=== PATIENT | female | born 1970 | race Caucasian/White ===

== ENCOUNTER 2023-02-11 12:57 | Outpatient (REF) | payer OTHER, MEDICARE, SELFPAY ==
[2023-02-12 13:44] LABS: H Pylori Breath Test Negative (Negative)
== END 2023-02-11 12:58 | disposition home or self-care (01) ==
LOC: HO.LNP 12:57
PROVIDERS: PCP Hospitalist; Visit Provider Nurse Practitioner
DX: R10.13 Epigastric pain (principal); R19.7 Diarrhea, unspecified
CPT/HCPCS: 83013

== ENCOUNTER 2023-02-11 12:57 | Outpatient (AMB) | payer OTHER, MEDICARE, SELFPAY ==
[2023-02-11 13:01] VITALS: BP 137/73; PULSE 65; BMI 23.9
--- NOTE | 2023-02-11 13:01 | A.OFFVIS_ITS ---
Intake Vital Signs 02/11/23 13:01 Height 5 ft 4 in Weight 139 lb BMI 23.9 BP 137/73 Blood Pressure Location Lt brachial Position Sitting Pulse 65 Intake Visit Reasons: epigastric pain Intake Note: Patient present to in office visit today as a new patient for epigastric pain. CC:Patient c/o epigastric pain for a few months. She states is getting worse and worse and sometimes is hard to sleep do to pain. She also c/o constipation and diarrhea. Patient states last colo and EGD was done at [facility] [place] years ago . Allergies No Known Drug Allergies Allergy (Unknown, Verified 02/11/23 13:04) none HPI epigastric pain HPI Details 52-year-old female here for initial eval uation of epigastric pain. She is referred by Alexander Gallardo. PMX Paresthesias Anxiety/insomnia Nonspecific rash Absence of kidney History of COVID-19 infection Cyst left eardrum * SURGICAL HISTORY Breast reduction Left nephrectomy status post hydronephrosis Appendectomy Bunionectomy Removal of growth from right ear cyst * ALLERGIES: NKDA * [employer]; none in our system TODAYS VISIT Onset of 6 mos of she started with CIC alt with diarrhea, prior her stools were normal and formed. CIC and diarrhea are equal and when she has diarrhea it is complete water. Then she started having pain pain in th e midline gastric area that interrupt her sleep. The pain is relieved with pushing on the area somewhat. It is a dull pressure like I have to push something out of the way. Discomfort more than pain 10/10 in pressure. NO new meds, diet changes or illness prior to this onset. 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 Her father had his GB removed, her mother of uncertain cause, other known stomach problems. Her PCP did labwork complete and an US not supplied to us. She was told the labs were perfect, GB was contracted and could not see tail of pancreas r/t bowel gas per pt report. Non stool studies done. She has a lot of bloating but not passing gas. This is post prandially no matter what foods. NO know FHX of crc or diarrheal syndromes. She has had past colonoscopies in her 40's that were normal. Had an EGD at the same time that was neg. There are no prior problems with anesthesia or sedation. She denies any cardiac or respiratory problems. NO ID problems. No known FHX of stomach or CRC or polyps. The for now and not starting any new interventions until I get all of the labs and imaging from her primary care provider. I will order an EGD and a colonoscopy for further investigation and for screening. Return office visit in 6 weeks. She is agreeable to this. [facility] Medical History COVID-19 virus infection Surgical History History of esophagogastroduodenoscopy (EGD) H/O colonoscopy S/P ear surgery History of bunionectomy History of appendectomy H/O left nephrectomy H/O bilateral breast reduction surgery Family History Mother Stomach cancer Paternal Grandmother Breast cancer Maternal Uncle Cancer Social History Alcohol intake: current Alcohol intake frequency: holidays/special occasions only Patient Tobacco Use Status: Former Tobacco user Review of Systems Const Denies fatigue, Denies fever(s), Denies night sweats, Reports poor appetite and Denies weight loss ENT Reports Normal hearing present, Denies dental pain, Denies dysphagia, Denies hearing loss, Denies mouth pain, Denies odynophagia, Denies throat swelling, Denies tongue swelling and Reports other (Dentition adequate) Card Reports no additional complaints Resp Reports no additional complaints GI Reports abdominal pain, Denies melena, Reports bloating, Denies hematochezia, Reports constipation, Denies GI cramping, Denies dysphagia, Denies excessive flatus, Denies early satiety, Denies heartburn, Reports diarrhea, Denies nausea, Denies odynophagia, Denies vomiting and Denies hematemesis Skin/Breast Denies pruritus, Denies lesions, Denies rash and Denies jaundice Neuro Reports Normal hearing present and Denies Abnormal speech present Endo Denies fatigue Aller/Immun Denies throat swelling and Denies tongue swelling Physical Exam Vital Signs: Last Vital Signs Pulse 65 02/11/23 13:01 BP 137/73 02/11/23 13:01 BMI result Body Mass Index 23.9 Const General: cooperative, no acute distress, well developed and well groomed Nutritional Appearance: average body habitus and well nourished Orientation/consciousness: oriented to person, oriented to place and oriented to time Limitations: No language barrier HEENT Head: Yes normocephalic and Yes atraumatic Eyes General: appearance normal, both eyes and all related structures Pupils: Equal, round and reactive pupils present Neck Neck: Yes normal visual inspection and Yes no lymphadenopathy Thyroid: Thyroid normal Resp Effort & Inspection: normal respiratory effort and able to speak in complete sentences Auscultation: clear to auscultation bilaterally Cardio Rate: regular rate Rhythm: regular rhythm Heart sounds: Normal, physiologic split S2 sound present Peripheral pulses: radial pulses present and posterior tibial pulses present GI Inspection: No distended and No Abdominal panniculus present Palpation (GI): Soft to palpation, Tenderness to palpation present (GI) (Gastric area and there seems to be a slight divot? Hernia), no guarding, not rigid and No hepatosplenomegaly present Percussion: Yes normal to percussion Auscultation: normal bowel sounds Rectal Exam - Female: deferred Skin General skin exam: no rashes or lesions noted, turgor normal, skin not dry, no jaundice, No spider nevi and no striae Rashes: no rashes Nails: normal Neuro General: oriented to person, oriented to place and oriented to time Cranial nerves: Yes Equal, round and reactive pupils present and Yes Normal hearing present Speech: No Abnormal speech present Extrem General: Yes normal to inspection, No clubbing, No cyanosis and No edema Psych Appearance: grossly normal and well kempt Mental Status: mental status grossly normal Speech and movement: Normal speech and movement present Affect: normal affect Attitude: cooperative Thought process: Normal thought process present and not confabulating Thought content: Normal thought content present Insight: Fair insight present (Psych) Judgement: Fair judgement present (Psych) Assessment & Plan Assessment & Plan (1) Diarrhea: Code(s): R19.7 - Diarrhea, unspecified (2) Epigastric pain: Code(s): R10.13 - Epigastric pain Plan Onset of 6 mos of she started with CIC alt with diarrhea, prior her stools were normal and formed. CIC and diarrhea are equal and when she has diarrhea it is complete water. Then she started having pain pain in th e midline gastric area that interrupt her sleep. The pain is relieved with pushing on the area somewhat. It is a dull pressure like I have to push something out of the way. Discomfort more than pain 10/10 in pressure. NO new meds, diet changes or illness prior to this onset. She has had a chronic discomfort in her left flank that is likely scar tissue fr om her nephrectomy per her renal specialist. Her father had his GB removed, her mother of uncertain cause, other known stomach problems. Her PCP did labwork complete and an US not supplied to us. She was told the labs were perfect, GB was contracted and could not see tail of pancreas r/t bowel gas per pt report. Non stool studies done. She has a lot of bloating but not passing gas. This is post prandially no matter what foods. NO know FHX of crc or diarrheal syndromes. She has had past colonoscopies in her 40's that were normal. Had an EGD at the same time that was neg. There are no prior problems with anesthesia or sedation. She denies any cardiac or respiratory problems. NO ID problems. No known FHX of stomach or CRC or polyps. The for now and not starting any new interventions until I get all of the labs and imaging from her primary care provider. I will order an EGD and a colonoscopy for further investigation and for screening. Return office visit in 6 weeks. She is agreeable to this. Orders: Orders TSH reflex Free T4 Today R10.13 - Epigastric pain, R19.7 - Diarrhea, unspecified H Pylori Breath Test Today R10.13 - Epigastric pain, R19.7 - Diarrhea, unspecified C Reactive Protein Today R10.13 - Epigastric pain, R19.7 - Diarrhea, unspecified Rast Allergen Today R10.13 - Epigastric pain, R19.7 - Diarrhea, unspecified Pancreatic Elastase-1 Today R10.13 - Epigastric pain, R19.7 - Diarrhea, unspecified Calprotectin, Fecal Today R10.13 - Epigastric pain, R19.7 - Diarrhea, unspecified EGD/[place] Combo - GI Use Only Today R10.13 - Epigastric pain, R19.7 - Diarrhea, unspecified GI Panel Today R10.13 - Epigastric pain, R19.7 - Diarrhea, unspecified Medications: New peg 3350-electrolytes [id number] -5.86 gram (Golytely) until fecal effluent is clear; do not exceed a total volume of 2,000 mL 240 mL PO Q10M 1 day 4,000 mL 0RF Z12.11 - Encounter for screening for malignant neoplasm of colon Coding Level of Care Code New Pt Level 3 (21147) Diagnoses Diarrhea R19.7 Epigastric pain R10.13
== END 2023-02-11 14:15 | disposition home or self-care (01) ==
PROVIDERS: PCP Hospitalist; Visit Provider Nurse Practitioner
DX: R19.7 Diarrhea, unspecified (principal); R10.13 Epigastric pain
CPT/HCPCS: 99203